=== PATIENT | male | born 1990 | race Caucasian/White ===

== ENCOUNTER → 2017-01-21 | Outpatient (CLI) | payer OTHER | END | disposition home or self-care (01) | LOC: CDC 11:17 | DX: M25.561 Pain in right knee (principal) | CPT/HCPCS: 93000 ==

== ENCOUNTER 2017-11-19 14:44 | Emergency (ER) | payer OTHER ==
[~2017-11-19] VITALS: Ht 177.8 cm; Wt 95.0 kg
[2017-11-19 15:21] LABS: BASOPHIL (%) 0.8 % (0-1); BASOPHIL COUNT 0.1 K/uL (0-0.1); EOSINOPHIL (%) 1.9 % (0-5); EOSINOPHIL COUNT 0.1 K/uL (0-0.3); HEMATOCRIT 41.3 % (38.0-50.0); HEMOGLOBIN 14.6 G/DL (12.5-16.6); IMMATURE GRANULOCYTE (%) 0.2 % (0.0-0.7); LYMPHOCYTE (%) 23.3 % (15-42); LYMPHOCYTE COUNT 1.5 K/uL (1.0-2.8); MCH 30.3 PG (29.0-34.0); MCHC 35.4 G/DL (30.0-36.0); MCV 85.7 FL (86-99); MONOCYTE (%) 6.5 % (3-12); MONOCYTE COUNT 0.4 K/uL (0-0.8); NEUTROPHIL (%) 67.3 % (45-76); NEUTROPHIL COUNT 4.3 K/uL (1.8-6.4); PLATELET COUNT 184 K/uL (156-360); RBC DIS.WIDTH-CV 11.7 % (11.8-14.6); RBC DIS.WIDTH-SD 36.6 % (39-53); RED BLOOD COUNT 4.82 M/uL (4.00-5.50); WHITE BLOOD COUNT 6.3 K/uL (4.1-10.2)
[2017-11-19 15:29] LABS: ALBUMIN 4.7 g/dL (3.2-4.8); CHLORIDE 106 mEq/L (99-109); POTASSIUM 3.9 mEq/L (3.7-5.4); SODIUM 140 mEq/L (136-147)
[2017-11-19 15:31] LABS: GLUCOSE 108 mg/dL (70-99); TOTAL PROTEIN 7.3 g/dL (6.4-8.3)
[2017-11-19 15:33] LABS: TOTAL BILIRUBIN 0.5 mg/dL (0.0-1.0)
[2017-11-19] MEDS ORDERED: TRUVADA1 TABLET PO (15:34)
[2017-11-19] MEDS ORDERED: ISENTRESS400 MG PO (15:34)
[2017-11-19 15:35] LABS: ALKALINE PHOSPHATASE 56 IU/L (3-129); CREATININE 0.9 mg/dL (0.6-1.3); GFR ESTIMATE (CALCULATED) > 59 mL/min/ (58.99-99999)
[2017-11-19 15:36] LABS: AST (GOT) 19 IU/L (2-34); UREA NITROGEN (BUN) 13 mg/dL (9-23)
[2017-11-19] MEDS ORDERED: ZOFRAN4 MG PO (15:36)
[2017-11-19 15:37] LABS: DIRECT BILIRUBIN 0.2 mg/dL (0.0-0.3)
[2017-11-19 15:38] LABS: ALT (GPT) 15 IU/L (3-49)
[2017-11-19 16:15] VITALS: BP 138/84
[2017-11-20 10:46] LABS: HEPATITIS C ANTIBODY Nonreactive
[2017-11-20 10:47] LABS: HIV-1/2 AB/AG COMBO Nonreactive
[2017-11-20 10:48] LABS: HEPATITIS B SURFACE ANTIBODY REACTIVE
== END 2017-11-19 17:08 | disposition home or self-care (01) ==
LOC: EME 14:44
PROVIDERS: Nurse Practitioner Family
PROC: 3E0234Z Introduction of Serum, Toxoid and Vaccine into Muscle, Percutaneous Approach (ICD-10-PCS; principal; 2017-11-19)
DX: S61.234A Puncture wound without foreign body of right ring finger without damage to nail, initial encounter (principal); W46.0XXA Contact with hypodermic needle, initial encounter; Y99.0 Civilian activity done for income or pay; Z77.21 Contact with and (suspected) exposure to potentially hazardous body fluids; Z23 Encounter for immunization
CPT/HCPCS: 80048; 80076; 85025; 86706; 86803; 87389; 99281; 99284